=== PATIENT | female | born 1935 | race Caucasian/White ===

== ENCOUNTER 2023-12-28 13:36 | Inpatient (IN) | payer MEDICARE ==
[~2023-12-28] VITALS: Ht 154.9 cm; Wt 47.2 kg
[2023-12-28] MEDS ORDERED: AMLO10TA59 PO (13:51)
[2023-12-28] MEDS ORDERED: LEVO88TA5 PO (13:51)
[2023-12-28] MEDS ORDERED: ONDANSETRON 4 MG/2 ML VIAL IV ONE (14:00)
[2023-12-28] MEDS ORDERED: MORPHINE SULFATE 2 MG/1 ML DISP.SYRIN IV ONE (14:00)
[2023-12-28 14:12] LABS: HEMATOCRIT 32.2 % (31.2-41.9); HEMOGLOBIN 10.9 g/dL (10.9-14.3); MEAN CORPUSCULAR HGB CONC 34 g/dL (32.3-35.6); MEAN CORPUSCULAR VOLUME 103.9 fL (75.5-95.3); PLATELET COUNT (AUTO) 153 K/uL (179-408); RED CELL DISTRIBUTION WIDTH 15.1 % (12.3-17.7); WHITE BLOOD COUNT (AUTO) 12.1 K/uL (3.8-11.8)
[2023-12-28 14:13] LABS: EOSINOPHILS # (AUTO) 0.1 K/uL (0.0-0.7); EOSINOPHILS % (AUTO) 0.5 % (0.0-7.0); LYMPHOCYTES # (AUTO) 0.5 K/uL (0.8-4.8); LYMPHOCYTES % (AUTO) 3.8 % (20.5-51.5); MONOCYTES # (AUTO) 3.1 K/uL (0.1-1.30); MONOCYTES % (AUTO) 25.9 % (0.0-11.0); NEUTROPHILS # (AUTO) 8.5 K/uL (1.8-8.9); NEUTROPHILS % (AUTO) 69.8 % (38.5-71.5)
[2023-12-28 14:22] LABS: CALCIUM 8.5 mg/dL (8.5-10.1); CARBON DIOXIDE 27 mmol/L (21-32); CHLORIDE 97 mmol/L (98-107); CREATININE 0.5 mg/dL (0.6-1.3); GLUCOSE 114 mg/dL (74-106); POTASSIUM 3.6 mmol/L (3.5-5.1); SODIUM SERUM 131 mmol/L (136-145); UREA NITROGEN, BLOOD 14 mg/dL (7-18)
[2023-12-28] MEDS ORDERED: LORAZEPAM 2 MG/1 ML VIAL ONE (14:26)
[2023-12-28] MEDS: IV NORMAL SALINE 1000 ML BAG IV ONE (14:32)
[2023-12-28] MEDS: LORAZEPAM 2 MG/1 ML VIAL IV ONE (14:32)
[2023-12-28 14:33] LABS: DIFFERENTIAL COMMENT 1
[2023-12-28 14:35] LABS: NT-PRO BNP 348 pg/mL (0-125)
[2023-12-28] MEDS ORDERED: KETOROLAC TROMETHAMINE 15 MG INJ ONE (15:03)
[2023-12-28] MEDS: KETOROLAC TROMETHAMINE 15 MG INJ IVP ONE (15:08)
[2023-12-28] MEDS ORDERED: IOHEXOL 350 100 ML INFUS..BTL ONE (15:57)
[2023-12-28] MEDS ORDERED: SWABABLE VALVE TRANSFER SET EA MC ONE (15:57)
[2023-12-28] MEDS ORDERED: IV NORMAL SALINE 250 ML IV ONE (15:57)
[2023-12-28 17:08] LABS: BASOPHILS % (MANUAL) 0 % (0-2); EOSINOPHILS % (MANUAL) 0 % (0-8); LYMPHOCYTES % (MANUAL) 5 % (20-40); MONOCYTES % (MANUAL) 25 % (2-10); NEUTROPHILS % (MANUAL) 70 % (42-75)
[2023-12-28] MEDS ORDERED: MAGNESIUM HYDROXIDE 30 ML LIQUID UDC PO PRN (20:30)
[2023-12-28] MEDS ORDERED: HYDROCODONE/APAP 5-325MG TABLET PO PRN (20:30)
[2023-12-28] MEDS ORDERED: ONDANSETRON 4 MG/2 ML VIAL IV PRN (20:30)
[2023-12-28] MEDS ORDERED: ACETAMINOPHEN 325 MG TABLET PO PRN (20:30)
[2023-12-28] MEDS ORDERED: TEMAZEPAM 15 MG CAPSULE PO PRN (20:30)
[2023-12-28 20:50] VITALS: O2SAT 98
[2023-12-28] MEDS: ALBUTEROL SULFATE 2.5 MG/ 0.5 ML NEBU NEB PRN (21:35)
[2023-12-28 23:00] VITALS: BP 117/57; TEMP 98.2; O2SAT 97
[2023-12-28] MEDS: DOCUSATE SODIUM 250 MG CAPSULE PO SCH (23:00)
[2023-12-29 04:06] VITALS: BP 118/56; TEMP 98.3; O2SAT 96
[2023-12-29] MEDS ORDERED: ALBUTEROL SULFATE 2.5 MG/3 ML NEBU NEB PRN (05:45)
[2023-12-29] MEDS: LEVOTHYROXINE SODIUM 88 MCG TABLET PO SCH (06:27)
[2023-12-29] MEDS: PANTOPRAZOLE SODIUM 40 MG TABLET.DR PO SCH (06:43)
[2023-12-29 07:35] LABS: BASOPHILS % (AUTO) 0.7 % (0.0-2.0); EOSINOPHILS # (AUTO) 0.1 K/uL (0.0-0.7); EOSINOPHILS % (AUTO) 1.8 % (0.0-7.0); HEMATOCRIT 28.1 % (31.2-41.9); HEMOGLOBIN 9.4 g/dL (10.9-14.3); LYMPHOCYTES # (AUTO) 0.7 K/uL (0.8-4.8); LYMPHOCYTES % (AUTO) 10.4 % (20.5-51.5); MEAN CORPUSCULAR HEMOGLOBIN 35.1 uug (24.7-32.8); MEAN CORPUSCULAR HGB CONC 34 g/dL (32.3-35.6); MEAN CORPUSCULAR VOLUME 104.4 fL (75.5-95.3); MONOCYTES # (AUTO) 0.8 K/uL (0.1-1.30); MONOCYTES % (AUTO) 11.7 % (0.0-11.0); NEUTROPHILS % (AUTO) 75.4 % (38.5-71.5); PLATELET COUNT (AUTO) 152 K/uL (179-408); RED BLOOD CELL COUNT(AUTO) 2.69 MIL/uL (3.63-4.92); RED CELL DISTRIBUTION WIDTH 14.8 % (12.3-17.7); WHITE BLOOD COUNT (AUTO) 6.7 K/uL (3.8-11.8)
[2023-12-29 08:03] LABS: DIFFERENTIAL COMMENT 1
[2023-12-29] MEDS: AMLODIPINE 10 MG TABLET PO SCH (08:37)
[2023-12-29 08:51] LABS: ALANINE AMINOTRANSFERASE 19 U/L (14-59); ALBUMIN 1.8 g/dL (3.4-5.0); ALKALINE PHOSPHATASE 72 U/L (50-136); ASPARTATE AMINOTRANSFERASE 15 U/L (15-37); BILIRUBIN,TOTAL 0.3 mg/dL (0.2-1.0); CALCIUM 8.2 mg/dL (8.5-10.1); CARBON DIOXIDE 29 mmol/L (21-32); CHLORIDE 101 mmol/L (98-107); CHOLESTEROL 130 mg/dL (<200); CREATININE 0.5 mg/dL (0.6-1.3); GLUCOSE 102 mg/dL (74-106); HDL CHOLESTEROL 19 mg/dL (40-60); MAGNESIUM 1.8 mg/dL (1.8-2.4); PHOSPHOROUS 3.5 mg/dL (2.5-4.9); POTASSIUM 3.6 mmol/L (3.5-5.1); SODIUM SERUM 135 mmol/L (136-145); TRIGLYCERIDES 81 MG/DL (30-150); UREA NITROGEN, BLOOD 18 mg/dL (7-18)
[2023-12-29 09:03] LABS: IRON, SERUM 14 ug/dL (50-175)
[2023-12-29 11:18] VITALS: BP 140/56; TEMP 98.4; O2SAT 94
[2023-12-29 11:39] LABS: THYROID STIMULATING HORMONE 6.303 mIU/mL (0.358-3.740)
[2023-12-29 15:32] VITALS: BP 130/60; TEMP 98.1; O2SAT 94
[2023-12-29 20:30] VITALS: BP 134/64; TEMP 99; O2SAT 94
[2023-12-29] MEDS: DOCUSATE SODIUM 100 MG CAPSULE PO SCH (22:26)
[2023-12-30 04:58] VITALS: BP 124/62; TEMP 98.8; O2SAT 92
[2023-12-30 12:07] VITALS: BP 129/58; TEMP 99.4; O2SAT 92
[2023-12-30 15:47] VITALS: BP 121/60; TEMP 98.7; O2SAT 93
[2023-12-30 20:00] VITALS: BP 122/50; TEMP 98; O2SAT 93
[2023-12-31 04:00] VITALS: BP 117/53; TEMP 98.4; O2SAT 93
[2023-12-31 09:03] VITALS: BP 131/53; TEMP 98.7; O2SAT 95
[2023-12-31 11:54] VITALS: BP 125/63; TEMP 98.1; O2SAT 95
[2023-12-31 16:46] VITALS: BP 126/67; TEMP 99.9; O2SAT 95
[2024-01-01] MEDS ORDERED: PROTEIN SUPPLEMENT (PROSTAT) 30 ML LIQUID PO SCH (08:00)
== END 2023-12-31 16:40 | disposition home health service (06) | DRG 206 ==
LOC: ER 13:36 → TELE3 20:59 → MEDSURG3 12-29 18:20
PROVIDERS: ADMIT Internal Medicine; ATTEND Nurse Practitioner Acute Care
DX: J95.89 Other postprocedural complications and disorders of respiratory system, not elsewhere classified (principal); J98.11 Atelectasis; Z68.1 Body mass index [BMI] 19.9 or less, adult; E87.1 Hypo-osmolality and hyponatremia; R09.02 Hypoxemia; R62.7 Adult failure to thrive; Z92.21 Personal history of antineoplastic chemotherapy; Z92.3 Personal history of irradiation; Z90.710 Acquired absence of both cervix and uterus; Z85.43 Personal history of malignant neoplasm of ovary; E03.9 Hypothyroidism, unspecified; M54.6 Pain in thoracic spine; I10 Essential (primary) hypertension; E86.1 Hypovolemia; M48.02 Spinal stenosis, cervical region; D64.9 Anemia, unspecified; M79.89 Other specified soft tissue disorders; M79.602 Pain in left arm; R00.0 Tachycardia, unspecified; M50.11 Cervical disc disorder with radiculopathy, high cervical region
CPT/HCPCS: 36415; 70030-TC; 70450; 71045; 71275; 72125; 83550; 83735; 84100; 84443; 84481; 84484; 85025; 93005; A4606; A4663; G0378; J1885; J2060; J7040; Q9967